=== PATIENT | female | born 1995 | race African-American/Black ===

== ENCOUNTER 2019-09-13 17:59 | Emergency (ER) | payer BC ==
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
[2019-09-13 18:23] VITALS: BP 107/70
[2019-09-13] MEDS ORDERED: NS 0.9% 1000 ML** 1,000 ML IV ONE (18:41)
[2019-09-13] MEDS ORDERED: Ondansetron ODT TAB* 4 MG SL ONE (18:42)
== END 2019-09-13 19:41 | disposition home or self-care (01) ==
LOC: UCCORT 17:59
DX: K52.9 Noninfective gastroenteritis and colitis, unspecified (principal)
CPT/HCPCS: 84702; 96360; 99202; A9270-GY; G0463